=== PATIENT | female | born 1975 | race American Indian/Alaskan Native ===

== ENCOUNTER 2020-11-09 07:38 | Outpatient (CLI) | payer BC ==
[2020-11-09 08:32] LABS: Blood Urea Nitrogen 14 mg/dL (7-17)
--- NOTE | 2020-11-09 09:24 | Cat Scan Report ---
CT PELVIS WITH CONTRAST INDICATION / CLINICAL INFORMATION: OVARIAN MASS OMNI 300 100 ML. TECHNIQUE: Axial CT images were obtained through the pelvis after 100 cc of Omnipaque [address] scans at this location are performed using CT dose reduction for ALARA by means of automated exposure control. COMPARISON: None available. FINDINGS: BOWEL: No significant abnormality. APPENDIX: No significant abnormality. PERITONEUM: No free fluid. No free air. No fluid collection. LYMPH NODES: No significant adenopathy. ARTERIES: No significant abnormality. VEINS: No significant abnormality. URINARY BLADDER: No significant abnormality. REPRODUCTIVE ORGANS: There is a bilobed predominantly fat density mass with small soft tissue compone nt in the right adnexa characteristic of an ovarian dermoid. The mass measures 5.5 x 3.7 cm. In addition there is a 3 cm nodule in the uterus which is likely a fibroid. ADDITIONAL FINDINGS: None. SKELETAL SYSTEM: No significant abnormality. IMPRESSION: 1. Mass lesion in the right adnexa/right ovary is predominantly fat density characteristic of a dermo id. 2. 3 cm nodule in the uterus is characteristic of fibroid. Signer Name: Jaquan Kate MD Signed: 11/09/2020 9:20 AM Workstation Name: [id number]
== END 2020-11-09 07:39 | disposition home or self-care (01) ==
LOC: CT 07:38
PROVIDERS: ATTEND Obstetrics & Gynecology
DX: D25.9 Leiomyoma of uterus, unspecified (principal); N94.89 Other specified conditions associated with female genital organs and menstrual cycle
CPT/HCPCS: 36415; 72193; 82565; 84520; Q9967

== ENCOUNTER 2021-03-23 06:15 | Observation (INO) | payer BC ==
--- NOTE | 2021-03-17 09:23 | Anesthesia Consultation ---
Anesthesia Consult and Med Hx Date of service: 03/23/21 - Airway Anesthetic Teeth Evaluation: Good ROM Head & Neck: Adequate Mental/Hyoid Distance: Adequate Mallampati Class: Class I Intubation Access Assessment: Good - Pulmonary Exam CTA: Yes - Cardiac Exam Cardiac Exam: RRR - Pre-Operative Health Status ASA Pre-Surgery Classification: ASA2 Proposed Anesthetic Plan: General Nerve Block: TAP - Pulmonary Hx Smoking: No Hx Respiratory Symptoms: No Hx Sleep Apnea: No (JONAH PRE SCREEN NEGATIVE) - Cardiovascular System Hx Hypertension: No - Central Nervous System CVA: No - Endocrine Hx Renal Disease: No Hx Liver Disease: No Hx Insulin Dependent Diabetes: No Hx Non-Insulin Dependent Diabetes: No Hx Hypothyroidism: Yes - Hematic Hx Anemia: Yes (no hx transfusions) - Other Systems Hx Obesity: No - Additional Comments Anesthesia Medical History Comments: No hx anesthetic complications.
[2021-03-17 10:17] LABS: Hematocrit 35.1 % (30.3-42.9); Hemoglobin 11.1 gm/dl (10.1-14.3); Mean Corpuscular HGB Conc 32 % (30-34); Mean Corpuscular Volume 80 fl (79-97); Platelet Count 319 K/mm3 (140-440); Red Blood Count 4.37 M/mm3 (3.65-5.03); Red Cell Distribution Width 16.6 % (13.2-15.2)
--- NOTE | 2021-03-22 12:23 | History and Physical Report ---
History of Present Illness Date of examination: 03/17/21 Chief complaint: Intermenstrual bleeding, fibroids, pelvic pain and pelvic mass History of present illness: Past History : 5 Term Births: 0 Premature Births: 1 Living Children: 1 Para: 1 Mult. Births: 0 Prev : 1 Aborta: 4 Elect. Ab: 0 Spont. 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) Abnormal PAP: positive Uterine Anomaly: negative MASOUD Exposure: negative Infertility: negative Infection History HIV Risk Eval: no TB exposure: no Hx of STD: none Active Medications (reviewed today): ZYRTEC ALLERGY TABLET (CETIRIZINE HCL TABS) SYNTHROID 100 MCG ORAL TABLET (LEVOTHYROXINE SODIUM) 1 po qd Current Allergies (reviewed today): PCN (Critical) NIZATIDINE (NIZATIDINE CAPS) (Critical) Past Medical History: Reviewed and updated today: Hypothyroidism PCOS Fibroids ovarian mass Past Surgical History: Reviewed and updated today: D&C: MASTER MACHINIST Surgery:LEEP (1997) Family History Summary: Reviewed history Last on 08/26/2020 and no changes required:03/22/2021 Other Family Member - Has No Family History of Uterine Cancer - Entered On: 06/13/2019 Other Family Member - Has No Family History of Small Bowel Cancer - Entered On: 06/13/2019 Other Family Member - Has No Family History of Stomach Cancer - Entered On: 06/13/2019 Other Family Member - Has No Family History of Pancreatic Cancer - Entered On: 06/13/2019 Other Family Member - Has No Family History of Ovarvian Cancer - Entered On: 06/13/2019 Other Family Member - Has No Family History of Kidney/Urinary Tract Cancer - Entered On: 06/13/2019 Other Family Member - Has No Family History of Spontaneous DVT-PE - Entered On: 06/13/2019 Other Family Member - Has No Family History of Colon Cancer - Entered On: 06/13/2019 Other Family Member - Has No Family History of Brain Cancer - Entered On: 020 Other Family Member - Has No Family History of Biliary Tract Cancer - Entered On: 06/13/2019 Aunt - Has Family History Breast Cancer - Maternal great - Entered On: 06/13/2019 General Comments - FH: Family History Breast Cancer:MG aunt No Family History of Colon Cancer No Family History of Ovarian Cancer No Family History of DVT/PE on OCP Social History: Reviewed history from 04/10/2017 and no changes required: Patient is Smoking History: Patient has never smoked. Risk Factors: Smoked Tobacco Use: Never smoker Smokeless Tobacco Use: Never Passive Smoke Exposure: no HIV High Risk Behavior: no Exercise: no Seatbelt Use: 100 % Alcohol Use: no Drug Use: no Previous Tobacco Use: Signed On - 11/09/2020 Smoked Tobacco Use: Never smoker Smokeless Tobacco Use: Never Counseled to Quit/Cut Down: yes Passive Smoke Exposure: no HIV High Risk Behavior: no Caffeine Use: 0 drinks per day Exercise: no Seatbelt Use: 100 % Alcohol Use: yes Type: occ Drinks per day: social Drug Use: no Physical Exam Appearance: well developed, well nourished, no acute distress Other Exams Lungs: no rales, rhonchi, or wheezes Heart: S1, S2, no murmur, rub, or gallop Genitourinary Exam Uterus: deferred for EUA Impression & Recommendations: Problem # 1: Fibroids of uterus; Intramural (ICD-218.1) (EFE57-K34.1) Diagnosis explained to patient . Discussed with patient various medical, surgical and radiological therapies common for treatment including, but not limited to, myomectomy, hysterectomy and uterine artery embolization. Discusse d risks and benefits of laparotomy, laparoscopy, vaginal and robotic assisted approaches for hysterectomies. Patient desires definitive treatment in the form of robot assisted laparoscopic total hysterectomy. The risks and alternatives for this surgery were reviewed with the patient. She was informed of the risks of the surgery including, but not limited to, pain, infection, bleeding possibly heavy enough to require a blood transfusion with associated risks of infections (hepatitis and HIV) and transfusion reactions, possible damage to bowel, bladder or ureter(s) and surrounding organs. . Patient understands that this surgery will make her sterile. Indications to abort a robotic/laparoscopic procedure and perform an open procedure were explained. Patient understands if her ovaries are removed she will become menopausal. Patient advised the small risks of spreading of malignancy if morcellation is required during the surgery patient understands and approves performing if necessary. Questions answered. Consent reviewed and signed The patient was instructed/informed the following: The normal length of hospital stay for this procedure. Nothing to eat or drink after midnight the evening prior to surgery. Increase fluid intake the day prior to surgery and light dineer the night before the procedure Pre-op instruction sheets given. Wound care instructions given. Problem # 2: Ovarian mass (ICD-625.8) (MXS04-V96.89) She was infotmed although by imaging the abnormal ovary has been documented as the right and she desires to have that ovary removed she may have to have the (L) ovary as well. Patient voiced understanding and agreed with plan of care Orders: Ofc Vst Est [id number] ([id number]) Problem # 3: Pelvic and perineal pain (ICD-789.00) (KWP22-L22.2) It was extensively explained to her that her pain may persist, recur or change in nature due to the difficulty with determining the exact etiology(ies) of chronic pelvic pain or development of adhesions. She declined other treatment options at this time. Questions were encouraged and answered Problem # 4: Intermenstrual bleeding - regular (ICD-626.5) (AAW51-P92.3) Medications and Allergies Allergies Allergy/AdvReac Type Severity Reaction Status Date / Time nizatidine [From Axid] Allergy Itching , Verified 03/16/21 09:13 CONFUSION, HIGH HEART RATE Penicillins Allergy Rash Verified 03/16/21 09:13 Home Medications Medication Instructions Recorded Confirmed Last Taken Type Cetirizine HCl [ZyrTEC 10mg cap] 10 mg PO DAILY 03/16/21 03/16/21 Unknown History Levothyroxine [Synthroid] 100 mcg PO QAM 03/16/21 03/16/21 Unknown History Active Meds: Active Medications Gentamicin Sulfate 310 mg/ (Sodium Chloride) 107.75 mls @ 200 mls/hr IV PREOP ONE; Protocol Stop: 03/23/21 06:29 Clindamycin HCl (Cleocin 900 Mg/50 Ml) 900 mg in 50 mls @ 100 mls/hr IV PREOP ONE; Protocol Stop: 03/23/21 06:29 Exam Vital Signs Temp Pulse Resp BP Pulse Ox 98.1 F 71 20 142/88 100 03/17/21 08:50 03/17/21 08:50 03/17/21 08:50 03/17/21 08:50 03/17/21 08:50 Results - Labs 03/17/21 08:50 Assessment and Plan - Patient Problems (1) Fibroids, intramural Status: Chronic (2) Intermenstrual heavy bleeding Status: Acute (3) Pelvic and perineal pain Status: Chronic (4) Other specified conditions associated with female genital organs and menstrual cycle Status: Acute
[~2021-03-23 06:15] MED LIST: BACTERIOSTATIC SODIUM CHLORIDE 0.9% 30 ML VIAL INFILTRATI ONE; GENTAMICIN 310 MG in SODIUM CHLORIDE 0.9% 100 ML IV SCH; LACTATED RINGERS 1,000 ML ONE
[2021-03-23 07:11] LABS: Blood Urea Nitrogen 14 mg/dL (7-17); Calcium 8.9 mg/dL (8.4-10.2); Hemolysis Index 3
[2021-03-23 07:15] LABS: BUN/Creatinine Ratio 20
[2021-03-23] MEDS ORDERED: dexAMETHasone 4 MG/ML VIAL ONE (07:15)
[2021-03-23] MEDS ORDERED: BUPIVACAINE/PF (0.25%) 2.5 MG/ML 30 ML VIAL INFILTRATI ONE (07:15)
[2021-03-23] MEDS ORDERED: fentaNYL 100 MCG/2 ML INJ ONE ×2 (07:21→07:47)
[2021-03-23] MEDS ORDERED: MIDAZOLAM 2 MG/2 ML INJ ONE (07:21)
--- NOTE | 2021-03-23 07:25 | Anesthesia Day of Surgery ---
Anesthesia Day of Surgery - Day of Surgery Patient Examined: Yes Patient H&P Reviewed: Yes Patient is NPO: Yes
[2021-03-23] MEDS ORDERED: ACETAMINOPHEN 500 MG TAB ONE (07:26)
[2021-03-23] MEDS ORDERED: MAGNESIUM OXIDE 400 MG TAB PO ONE (07:27)
[2021-03-23] MEDS ORDERED: CELECOXIB 200 MG CAP ONE (07:27)
[2021-03-23] MEDS ORDERED: NEOMY 40 MG/POLYMYXIN B 200,000 UNITS/ML (GU) AMPULE IR ONE ×2 (07:28→08:43)
[2021-03-23] MEDS ORDERED: METHYLENE BLUE 50 MG/10 ML AMP ONE (07:28)
[2021-03-23] MEDS ORDERED: LACTATED RINGERS 1,000 ML IV SCH (07:30)
[2021-03-23] MEDS ORDERED: HYDROmorphone 1 MG/1 ML INJ IV PRN (07:30)
[2021-03-23] MEDS ORDERED: fentaNYL 100 MCG/2 ML INJ IV SCH (07:30)
[2021-03-23] MEDS ORDERED: MAGNESIUM OXIDE 400 MG TAB PO SCH (07:30)
[2021-03-23] MEDS ORDERED: ACETAMINOPHEN 500 MG TAB PO SCH ×2 (07:30→14:00)
[2021-03-23] MEDS ORDERED: propofoL 200 MG/20 ML VIAL IV ONE (07:47)
[2021-03-23] MEDS ORDERED: CELECOXIB 200 MG CAP PO NR (08:00)
[2021-03-23] MEDS ORDERED: MIDAZOLAM 2 MG/2 ML INJ IV NR (08:00)
[2021-03-23] MEDS ORDERED: ONDANSETRON 4 MG/2 ML INJ IV PRN (08:00)
[2021-03-23] MEDS ORDERED: LIDOCAINE MPF (2%) 20 MG/1 ML VIAL 5 ML ONE (08:11)
[2021-03-23] MEDS ORDERED: KETAMINE/STERILE WATER 50 MG/ML SYRINGE ONE (08:11)
[2021-03-23] MEDS ORDERED: ROCURONIUM 50 MG/5 ML INJ IV ONE (08:11)
[2021-03-23] MEDS ORDERED: PHENYLEPHRINE/NS 1,000 MCG/10 ML SYRINGE (OR USE) IV ONE (08:36)
[2021-03-23] MEDS ORDERED: SODIUM CHLORIDE 0.9% IRRIG SOLN 2000 ML IR ONE (08:44)
[2021-03-23] MEDS ORDERED: ONDANSETRON 4 MG/2 ML INJ ONE (09:30)
[2021-03-23] MEDS ORDERED: dexAMETHasone 20 MG/5 ML VIAL ONE (09:30)
[2021-03-23] MEDS ORDERED: GLYCOPYRROLATE 0.4 MG/2 ML INJ ONE ×2 (09:30)
[2021-03-23] MEDS ORDERED: NEOSTIGMINE 10MG/10 ML INJ MDV ONE (09:30)
[2021-03-23] MEDS ORDERED: LACTATED RINGERS 1,000 ML ONE ×2 (09:33→15:56)
--- NOTE | 2021-03-23 10:04 | Operative Report ---
Operative Report Operative Report: Date: 03/23/2021 Preoperative diagnosis: 1. Intermenstrual bleeding 2. Fibroids 3. Body mass index of 27.4 kg/m 4. Pelvic pain 5. Pelvic mass Postoperative diagnosis: 1. Intermenstrual bleeding 2. Fibroids 3. Body mass index of 27.4 kg/m 4. Pelvic pain 5. Enlarged right ovary 6. Left ovarian cyst 7. Pelvic adhesions Procedure: 1. Robotic-assisted laparoscopic total hysterectomy with bilateral salpingectomy 2. Right salpingo-oophorectomy 3. Left ovarian cystectomy 4. Lysis of adhesion Surgeon: Shirley Levin MD Film Spooler: CAMACHO Pena Anesthesiologist: Dr. Li Anesthesia: General endotracheal anesthesia EBL: Approximately 25 mL Findings: EUA: Uterus palpated to approximately 8 weeks. Uterus was sounded to 7 cm. As above. Procedure: Patient was taken to the OR and placed in the supine position. General anesthesia was induced and an oral gastric tube was placed. Her neck and head were placed on foam support. Foam eye protection with goggles were secured in place. Then foam face protection was placed and secured. Foam shoulder pads were then positioned on her shoulders for Trendelenburg positioning. She was then placed in dorsolithotomy position. Exam under anesthesia as above. The abdomen and vagina were then prepped and draped in the usual sterile fashion. Timeout was performed. A Perkins catheter was inserted into the bladder with drainage of clear yellow urine. The operative speculum was introduced into the vagina and the anterior lip of the cervix was grasped with single-toothed tenaculum. The uterus was sounded to 7 cm. The cervix was progressively dilated to allow the large V care uterine manipulator. The bulb of the manipulator was inflated and the speculum and tenaculum were removed. The cup of the manipulator was placed around the cervix and the blue occluder of the manipulator was properly positioned in the vagina and secured. A laparotomy sponge that was saturated with a solution of polymyxin and saline was placed in the vagina to ensure pneumoperitoneum. Sterile gloves were placed and attention was turned to the abdomen. A 10 mm midline vertical supraumbilical incision was made approximately 10 cm superior to the elevated fundus of the uterus. A 10-12 mm trocar with the laparoscope and camera attached was introduced through this incision under direct visualization. The abdomen was insufflated. No obvious bowel, bladder, ureteral, or major vascular injury was noted. The patient was then placed in steep Trendelenburg position and the following trochars were placed under direct visualization: 8 mm robotic trochars were placed through incisions made in the bilateral midclavicular lower abdominal region approximately 10 cm lateral to the midline incision, and a 5 mm trocar was placed through an incision made in the right lower lateral pelvis. The 10 mm laparoscope was then replaced by a 5 mm laparoscope that was placed through the 5 millimeter lateral trocar. The 12 mm trocar was then removed and the Emil Rogers fascial closure device was placed through the incision and a 0 Vicryl was placed through the fascia. Once the suture was secured the 12 mm trocar was reintroduced. Once the trochars were in the appropriate positions, the da Chhaya robot system was engaged. The EndoShears and bipolar device was placed through the 8 mm trochars and positioned then attention was turned to the console. The uterus was elevated and left salpingectomy was performed. The tube was removed through the 5 mm trocar and sent to pathology in separate container. Then the utero-ovarian ligaments were clamped. cauterized and incised bilaterally using 30 W of energy. Then the round ligaments were clamped, cauterized and incised bilaterally. The anterior leaf of the broad ligament was elevated and with careful blunt and sharp dissection the bladder flap was created and dissected away from the lower uterine segment and cervix. The posterior leaf of the broad ligament was dissected away from the uterine vessels. The cup of the uterine manipulator was palpated both anteriorly and posteriorly. The bladder was further dissected away from the lower uterine segment. The uterine vessels were then clamped and cauterized bilaterally. Blanching of the uterus was then noted. Attention was again turned to the anterior lower uterine segment and the bladder was confirmed to be away from the operative field. Then attention was turned again to the posterior where the cup of the manipulator was palpated and a colpotomy was performed down to the cup. The incision was extended in the lateral position to the uterine vessels that were again clamped and cauterized and incised. Continuing along the cup of the manipulator in a circumferential manner the colpotomy was completed. The uterus and cervix were then removed through the vaginal incision. The pelvis was irrigated with warm normal saline. A moist laparotomy sponge was placed in the vagina to maintain pneumoperitoneum. Attention was turned to the right ovary. The tube was grasped and elevated. The course of the ureter was noted to be away from the operative field. The infundibulopelvic ligament was clamped cauterized and incised. The tube and ovary were released and removed through the colpotomy incision. Then attention was turned to the left ovary. The ovary was elevated and an ovarian cystectomy was performed in the usual manner. The cyst was removed through the the 5 mm lateral trocar. The pelvis was again irrigated with warm normal saline. The vagina cuff was approximated using V LOC 180 suture in a simple running stitch. Then a second layer was placed in the opposite direction.. Again the pelvis was copiously irrigated with polymixin in warm normal saline. The laparotomy sponge was removed from the vagina. No obvious evidence of bowel, bladder, ureteral, or major vascular injury was noted. Once hemostasis was noted, Karlo was applied to the operative field to ensure hemostasis. Then the instruments were removed, the robot was disengaged. The 10/12 mm trocar was removed and the fascia was ligated with the 0 Vicryl suture that was placed at the beginning of the procedure. The patient was taken out of Trendelenburg position, the abdomen was desufflated, the remaining trochars were removed. Incisions were reapproximated using 4-0 Monocryl in a subcuticular manner. Surgiseal was placed over the other incisions. The vagina was then inspected, the cuff was palpated to be intact and no bleeding was noted and clear yellow urine was draining into the Perkins bag from the bladder at the end of the procedure. Counts were correct 3. Patient was taken to recovery room in stable condition.
[2021-03-23] MEDS: HYDROmorphone 1 MG/1 ML INJ IV PRN ×2 (10:14→10:24)
--- NOTE | 2021-03-23 10:15 | Discharge Summary ---
Providers - Providers Date of discharge: 03/23/21 Attending physician: ANDREW PILLAI Primary care physician: LALITO GATES MD Hospitalization Condition: Good Procedures: RALTH, (R) SO, (L)BS and (L)ov cystectomy with TULIO Disposition: 01 HOME / SELF CARE / HOMELESS Final Discharge Diagnosis (Prints w/discharge instructions): RALTH, (R) SO, (L)BS and (L)ov cystectomy with TULIO - Discharge Diagnoses (1) Fibroids, intramural Status: Resolved (2) Intermenstrual heavy bleeding Status: Resolved (3) Pelvic and perineal pain Status: Resolved (4) Other specified conditions associated with female genital organs and menstrual cycle Status: Resolved Core Measure Documentation - Palliative Care Palliative Care/ Comfort Measures: Not Applicable - Core Measures Any of the following diagnoses?: none Exam - Constitutional Vitals: Temp Pulse Resp BP Pulse Ox 98.8 F 88 16 145/91 100 03/23/21 06:30 03/23/21 07:40 03/23/21 07:40 03/23/21 07:40 03/23/21 07:40 General appearance: Present: no acute distress Plan Activity: other (No sex, no driving. Ambulate approximately 1 mile under property a day. Void every hour to relieve pressure at the top of the vagina. Use your incentive spirometer every hour while awake) Weight Bearing Status: Full Weight Bearing Diet: regular (Drink 80 ounces of water a day. Eat small meals frequently. Avoid spicy, high-fat, high salt foods.) Wound: open to air, keep clean and dry Special Instructions: no heavy lifting (Greater than 15 pounds.) Follow up with: PRIMARY CAREMD [Primary Care Provider] - 7 Days
[2021-03-23] MEDS ORDERED: ACETAMINOPHEN 325 MG TAB PO SCH (12:01)
[2021-03-23] MEDS ORDERED: oxyCODONE /ACETAMINOPHEN 5-325MG TAB PO PRN (13:00)
[2021-03-23] MEDS ORDERED: IBUPROFEN 800 MG TAB PO PRN (13:00)
--- NOTE | 2021-03-23 13:26 | Event Note ---
Date: 03/23/21 Patient stable however since she is unable to be d/c from PACU d/t staffing, will observe longer prior to d/c
--- NOTE | 2021-03-23 15:19 | Progress Note ---
Assessment and Plan - Patient Problems (1) History of robot-assisted laparoscopic hysterectomy Current Visit: Yes Status: Acute Plan to address problem: Still no void and patient concerned about D/c home night. Appears o/w stable observe overnight. Operative findings and procedure explained. Questions encouraged and answered, she voiced understanding and agrees with plan of care (2) Fibroids, intramural Current Visit: No Status: Resolved (3) Intermenstrual heavy bleeding Current Visit: No Status: Resolved (4) Pelvic and perineal pain Current Visit: No Status: Resolved (5) Other specified conditions associated with female genital organs and menstrual cycle Current Visit: No Status: Resolved Subjective - Subjective Date of service: 03/23/21 Principal diagnosis: DOS s/p RATLH, RSO Interval history: Past History : 5 Term Births: 0 Premature Births: 1 Living Children: 1 Para: 1 Mult. Births: 0 Prev : 1 Aborta: 4 Elect. Ab: 0 Spont. Ab: 4 Ectopics: 0 # 1 Delivery date: 2004 Delivery type: SAB Comments: D&C # 2 Delivery date: 05/08/2006 Weeks Gestation: 29 Delivery type: Delivery location: [facility] – [place] Sex: Female weight: 2-3 Comments: PPROM, chorioamnionitis # 3 Delivery date: 05/2015 Delivery type: SAB Comments: No D&C # 4 Delivery date: 04/13/2017 Weeks Gestation: 5 Delivery type: SAB Comments: No D&C # 5 Delivery date: 2017 Delivery type: SAB Comments: No D&C [employer]IST History Uterine Surgery (not C/S): negative Operations: D&C: [employer] Surgery:LEEP (1997) Abnormal PAP: positive Uterine Anomaly: negative MASOUD Exposure: negative Infertility: negative Infection History HIV Risk Eval: no TB exposure: no Hx of STD: none Active Medications (reviewed today): ZYRTEC ALLERGY TABLET (CETIRIZINE HCL TABS) SYNTHROID 100 MCG ORAL TABLET (LEVOTHYROXINE SODIUM) 1 po qd Current Allergies (reviewed today): PCN (Critical) NIZATIDINE (NIZATIDINE CAPS) (Critical) Past Medical History: Reviewed and updated today: Hypothyroidism PCOS Fibroids ovarian mass Past Surgical History: Reviewed and updated today: D&C: [employer] SERVICE [employer]IST Surgery:LEEP (1997) Family History Summary: Reviewed history Last on 08/26/2020 and no changes required:03/22/2021 Other Family Member - Has No Family History of Uterine Cancer - Entered On: 06/13/2019 Other Family Member - Has No Family History of Small Bowel Cancer - Entered On: 06/13/2019 Other Family Member - Has No Family History of Stomach Cancer - Entered On: 06/13/2019 Other Family Member - Has No Family History of Pancreatic Cancer - Entered On: 06/13/2019 Other Family Member - Has No Family History of Ovarvian Cancer - Entered On: 06/13/2019 Other Family Member - Has No Family History of Kidney/Urinary Tract Cancer - Entered On: 06/13/2019 Other Family Member - Has No Family History of Spontaneous DVT-PE - Entered On: 06/13/2019 Other Family Member - Has No Family History of Colon Cancer - Entered On: 06/13/2019 Other Family Member - Has No Family History of Brain Cancer - Entered On: 06/13/2019 Other Family Member - Has No Family History of Biliary Tract Cancer - Entered On: 06/13/2019 Aunt - Has Family History Breast Cancer - Maternal great - Entered On: 06/13/2019 General Comments - FH: Family History Breast Cancer:MG aunt No Family History of Colon Cancer No Family History of Ovarian Cancer No Family History of DVT/PE on OCP Social History: Reviewed history from 04/10/2017 and no changes required: Patient is Smoking History: Patient has never smoked. Risk Factors: Smoked Tobacco Use: Never smoker Smokeless Tobacco Use: Never Passive Smoke Exposure: no HIV High Risk Behavior: no Exercise: no Seatbelt Use: 100 % Alcohol Use: no Drug Use: no Previous Tobacco Use: Signed On - 11/09/2020 Smoked Tobacco Use: Never smoker Smokeless Tobacco Use: Never Counseled to Quit/Cut Down: yes Passive Smoke Exposure: no HIV High Risk Behavior: no Caffeine Use: 0 drinks per day Exercise: no Seatbelt Use: 100 % Alcohol Use: yes Type: occ Drinks per day: social Drug Use: no Physical Exam Appearance: well developed, well nourished, no acute distress Other Exams Lungs: no rales, rhonchi, or wheezes Heart: S1, S2, no murmur, rub, or gallop Genitourinary Exam Uterus: deferred for EUA Impression & Recommendations: Problem # 1: Fibroids of uterus; Intramural (ICD-218.1) (BCP81-E65.1) Diagnosis explained to patient . Discussed with patient various medical, surgical and radiological therapies common for treatment including, but not limited to, myomectomy, hysterectomy and uterine artery embolization. Discussed risks and benefits of laparotomy, laparoscopy, vaginal and robotic assisted approaches for hysterectomies. Patient desires definitive treatment in the form of robot assisted laparoscopic total hysterectomy. The risks and alternatives for this surgery were reviewed with the patient. She was informed of the risks of the surgery including, but not limited to, pain, infection, bleeding possibly heavy enough to require a blood transfusion with associated risks of infections (hepatitis and HIV) and transfusion reactions, possible damage to bowel, bladder or ureter(s) and surrounding organs. . Patient understands that this surgery will make her sterile. Indications to abort a robotic/laparoscopic procedure and perform an open procedure were explained. Patient understands if her ovaries are removed she will become menopausal. Patient advised the small risks of spreading of malignancy if morcellation is required during the surgery patient understands and approves performing if necessary. Questions answered. Consent reviewed and signed The patient was instructed/informed the following: The normal length of hospital stay for this procedure. Nothing to eat or drink after midnight the evening prior to surgery. Increase fluid intake the day prior to surgery and light dineer the night before the procedure Pre-op instruction sheets given. Wound care instructions given. Problem # 2: Ovarian mass (ICD-625.8) ([id number]-J50.89) She was infotmed although by imaging the abnormal ovary has been documented as the right and she desires to have that ovary removed she may have to have the (L) ovary as well. Patient voiced understanding and agreed with plan of care Orders: [facility] V[facility] Est [id number] ([id number]) Problem # 3: Pelvic and perineal pain (ICD-789.00) (GVE70-C91.2) It was extensively explained to her that her pain may persist, recur or change in nature due to the difficulty with determining the exact etiology(ies) of chronic pelvic pain or development of adhesions. She declined other treatment options at this time. Questions were encouraged and answered Problem # 4: Intermenstrual bleeding - regular (ICD-626.5) ([id number]-W55.3) Patient reports: appetite normal (Still no void) Objective - Vital Signs Latest vital signs: Vital Signs Temp Pulse Resp BP BP Pulse Ox 03/23/21 12:07 98.2 F 93 H 136/77 100 03/23/21 11:00 98.7 F 91 H 22 135/84 98 03/23/21 10:45 89 20 130/73 100 03/23/21 10:30 97 F L 90 20 126/70 100 03/23/21 10:15 87 16 134/82 100 03/23/21 10:00 85 16 119/75 100 03/23/21 09:55 85 16 110/63 100 03/23/21 09:51 96.8 F L 86 10 L 107/63 100 03/23/21 08:25 16 03/23/21 08:20 16 03/23/21 07:40 88 16 145/91 100 03/23/21 07:34 72 16 131/72 100 03/23/21 07:32 78 14 132/79 100 03/23/21 07:28 80 16 132/79 100 03/23/21 07:25 18 03/23/21 07:24 83 16 115/82 100 03/23/21 07:20 18 03/23/21 07:19 85 18 137/82 100 03/23/21 06:30 98.8 F 78 18 136/86 100 Intake and Output 03/23/21 03/23/21 03/23/21 06:59 14:59 22:59 Intake Total 0 400 Output Total 125 Balance 0 275 Intake: IV 0 400 Output: Urine 125 Other: Voiding Method Toilet Toilet - Exam Breasts: Present: deferred Lungs: Present: Clear to auscultation, Normal air movement Abdomen: Present: normal appearance, soft, normal bowel sounds. Absent: distention, tenderness, guarding Extremities: Present: other (SCD's on and functioning properly)
[2021-03-23] MEDS: KETOROLAC 30 MG/1 ML INJ IV SCH ×2 (15:45→21:39)
[2021-03-23] MEDS ORDERED: LACTATED RINGERS 1000 ML IV SOLN IV SCH (16:00)
[2021-03-23] MEDS: CLINDAMYCIN 600 MG/50 mL 600 MG/50 ML BAG IV SCH ×2 (16:14→23:51)
--- NOTE | 2021-03-23 17:10 | Post Anesthesia Evaluation ---
- Post Anesthesia Evaluation Patient Participated: Yes Airway Patent: Yes Stable Respiratory Function: Yes Nausea/Vomiting: No Temp > 96.8F: Yes Pain Manageable: Yes Adequeate Hydration: Yes Anesthesia Complications: No Block Receding Appropriately: Yes Patient on Ventilator: No
[2021-03-23] MEDS: GENTAMICIN/NS 80 MG/100 ML 100 ML IV SCH (17:14)
[2021-03-23] MEDS: ACETAMINOPHEN 500 MG TAB PO SCH ×2 (18:08→23:52)
[2021-03-23] MEDS ORDERED: KETOROLAC 30 MG/1 ML INJ IV SCH (18:30)
[2021-03-24] MEDS: GENTAMICIN/NS 80 MG/100 ML 100 ML IV SCH (00:42)
[2021-03-24] MEDS: KETOROLAC 30 MG/1 ML INJ IV SCH ×2 (03:44→09:46)
[2021-03-24] MEDS: ACETAMINOPHEN 500 MG TAB PO SCH (05:26)
[2021-03-24 06:02] LABS: Hematocrit 28.5 % (30.3-42.9); Hemoglobin 9.7 gm/dl (10.1-14.3)
[2021-03-24 08:34] VITALS: BP 126/63
== END 2021-03-24 11:20 | disposition home or self-care (01) ==
LOC: OR 06:15 → OB 10:18
PROVIDERS: ADMIT Obstetrics & Gynecology; ATTEND Obstetrics & Gynecology
DX: D25.1 Intramural leiomyoma of uterus (principal); Z20.822 Contact with and (suspected) exposure to COVID-19; N92.3 Ovulation bleeding; R10.2 Pelvic and perineal pain; Z90.710 Acquired absence of both cervix and uterus; Z79.899 Other long term (current) drug therapy; Z98.890 Other specified postprocedural states; Z98.891 History of uterine scar from previous surgery
CPT/HCPCS: 36415; 58571; 64450; 80048; 81025; 85014; 85018; 85027; 86850; 86900; 86901; 88302; 88304; 88305; 88307; 96365; 96366; 96367; 96375; 96376; A4217; G0378; J1100; J1170; J1580; J1885; J2250; J2370; J2405; J2704; J2710; J3010; J3490; J7120; S2900; U0003; Q9968